=== PATIENT | female | born 1945 | race Caucasian/White ===

== ENCOUNTER → 2017-02-10 | Outpatient (CLI) | payer MEDICARE, BC | LOC: MW.CHFP 13:27 | PROVIDERS: ATTEND Family Medicine | DX: R53.83 Other fatigue (principal) | CPT/HCPCS: 36415; 80053; 84443; 85027 ==

== ENCOUNTER → 2017-02-10 | Outpatient (CLI) | payer MEDICARE, BC | LOC: MW.LAB 13:35 | PROVIDERS: ATTEND Internal Medicine | DX: N18.3 Chronic kidney disease, stage 3 (moderate) (principal); R79.9 Abnormal finding of blood chemistry, unspecified; R60.9 Edema, unspecified; N28.1 Cyst of kidney, acquired; R53.83 Other fatigue; I10 Essential (primary) hypertension; E78.5 Hyperlipidemia, unspecified | CPT/HCPCS: 36415; 80053; 81001; 82306; 82310; 82570; 83970; 84100; 84156; 84443; 84550; 85027; 99214 ==

== ENCOUNTER 2020-03-27 10:48 | Emergency (ER) | payer MEDICARE, BC ==
--- NOTE | 2020-03-27 11:09 | EDM.PDOC ---
ED HPI GENERAL MEDICAL PROBLEM - General Chief Complaint: Skin Complaint Stated Complaint: RASH FOREHEAD Time Seen by Provider: 03/27/20 10:57 Source of Information: Reports: Patient History Limitations: Reports: No Limitations - History of Present Illness INITIAL COMMENTS - FREE TEXT/NARRATIVE: 74-year-old female with history of diabetes presents with rash to the left face for 2 days. Associated with itching sensation. Denies fever, chills, chest pain, shortness of breath, ear pain, facial paralysis, neck pain, neck stiffness, headache. Her rash is localized to the left forehead. ROS: A 10-point review of systems, other than pertinent positives and negatives as stated per HPI, is otherwise negative PHYSICAL EXAM General: AOx4, GCS = 15, No distress HEENT: dry mucous membrane Skin: Dermatomal vesicular rash to the left frontalis. No vesicular lesions in the left external auditory canal, tip of the nose, left eye. Neck: supple, no meningismus, no Kernig or Brudzinski Cardiac: S1S2 RRR Respiratory: CTAB, no crackles or rales, no wheezing Abdomen: Soft, nontender, no rebound or guarding, nondistended, no pulsatile mass. Back: nontender Musculoskeletal: NVI distally, no deformity Neuro: No focal deficits, CN 2 - 12 WNL. - Related Data Allergies Allergy/AdvReac Type Severity Reaction Status Date / Time latex Allergy Cannot Verified 11/11/14 15:17 Remember Penicillins Allergy Hives Verified 11/11/14 15:17 Home Meds: Home Meds Olmesartan/Hydrochlorothiazide [Benicar HCT 40-25 MG] 1 tab PO DAILY 11/11/14 [History] Omeprazole 1 tab PO DAILY 11/11/14 [History] allopurinoL [Allopurinol] 1 tab PO DAILY 11/11/14 [History] amLODIPine Besylate [Amlodipine Besylate] 1 tab PO DAILY 11/11/14 [History] valACYclovir HCl [valACYclovir] 1,000 mg PO TID #21 tablet 03/27/20 [Rx] Past Medical History Cardiovascular History: Reports: Hypertension Genitourinary History: Reports: Other (See Below) Other Genitourinary History: kidney disease Endocrine/Metabolic History: Reports: Diabetes, Type II - Past Surgical History HEENT Surgical History: Reports: Tonsillectomy Cardiovascular Surgical History: Reports: Coronary Artery Bypass Musculoskeletal Surgical History: Reports: Other (See Below) Other Musculoskeletal Surgeries/Procedures:: knee surgery ED ROS GENERAL - Review of Systems Review Of Systems: Comprehensive ROS is negative, except as noted in HPI. ED EXAM, SKIN/RASH Exam: See Below Course - Re-Assessments/Exams Free Text/Narrative Re-Assessment/Exam: 03/27/20 11:09 After treatments and a prolonged observation period in the ER, the patient improved clinically and is stable for discharge. I performed a repeat examination and the patient has not demonstrated any new abnormal findings. Patient exhibits normal vital signs and has exhibited a normal gait. I advised the patient to return to the ER for reevaluation if symptoms worsened, and to follow up with their PCP (Dr. Doshi) within 3 days. MEDICAL DECISION MAKING: I reviewed the patients past medical records, lab and radiographic findings. I discussed the case with the patient. My differential diagnosis included: Shingles. She has no rash around her left eye, and her ear, tip of the nose. I do not suspect herpes zoster ophthalmicus, Dallas Quiroz syndrome or any other neurologic complications. Departure - Departure Time of Disposition: 11:10 Disposition: Home, Self-Care 01 Condition: Good Clinical Impression: Shingles - Discharge Information *PRESCRIPTION DRUG MONITORING PROGRAM REVIEWED*: Not Applicable *COPY OF PRESCRIPTION DRUG MONITORING REPORT IN PATIENT JULIETA: Not Applicable Prescriptions: valACYclovir HCl [valACYclovir] 1,000 mg PO TID #21 tablet Referrals: Walt Doshi MD [Primary Care Provider] - Additional Instructions: The following information is given to patients seen in the emergency department who are being discharged to home. This information is to outline your options for follow-up care. We provide all patients seen in our emergency department with a follow-up referral. The need for follow-up, as well as the timing and circumstances, are variable depending upon the specifics of your emergency department visit. If you don't have a primary care physician on staff, we will provide you with a referral. We always advise you to contact your personal physician following an emergency department visit to inform them of the circumstance of the visit and for follow-up with them and/or the need for any referrals to a consulting specialist. The emergency department will also refer you to a specialist when appropriate. This referral assures that you have the opportunity for follow-up care with a specialist. All of these measure are taken in an effort to provide you with optimal care, which includes your follow-up. Under all circumstances we always encourage you to contact your private physician who remains a resource for coordinating your care. When calling for follow-up care, please make the office aware that this follow-up is from your recent emergency room visit. If for any reason you are refused follow-up, please contact the [facility] Emergency Department at and asked to speak to the emergency department charge nurse.
[2020-03-27 11:30] VITALS: BP 114/63; PULSE 67
== END 2020-03-27 11:25 | disposition home or self-care (01) ==
LOC: MW.ED 10:48
DX: B02.9 Zoster without complications (principal); E11.9 Type 2 diabetes mellitus without complications; I10 Essential (primary) hypertension; Z91.040 Latex allergy status; Z88.0 Allergy status to penicillin; Z79.899 Other long term (current) drug therapy
CPT/HCPCS: 99282

== ENCOUNTER 2020-03-30 12:03 | Inpatient (IN) | payer MEDICARE, BC ==
[2020-03-30 14:46] LABS: BLOOD UREA NITROGEN,BUN 50 mg/dL (7.0-18.0); CHLORIDE,CL 98 mmol/L (98-107); GLUCOSE RANDOM 137 mg/dL (74-106); POTASSIUM,K 4.7 mmol/L (3.5-5.1); SODIUM,NA 134 mmol/L (136-145)
--- NOTE | 2020-03-30 14:49 | PCM.HP.2 ---
H&P History of Present Illness - General Date of Service: 03/30/20 - History of Present Illness Initial Comments - Free Text/Narative: 74 yo female with pmh of HTN, DM, CAD, s/p CABG 2016, and stage 4 CKD who was seen in the ED last week for herpes zoster infection of the left face. Patient was give acyclovir. She reported feeling week and feel down yesterday and had difficulty getting up. She stopped taking the acyclovir as she was concerned this was causing her generalized weakness. She was seen in by Dr. Henriquez clinic today who recommended admission due to her progressive weakness and zoster infection of the face - Related Data Allergies/Adverse Reactions: Allergies Allergy/AdvReac Type Severity Reaction Status Date / Time latex Allergy Redness Verified 03/30/20 15:20 Home Medications: Home Meds allopurinoL [Allopurinol] 300 mg PO DAILY 11/11/14 [History] Insulin Degludec [Tresiba] 52 unit SQ QPM 03/27/20 [History] Metoprolol Tartrate [Lopressor] 25 mg PO BID 03/27/20 [History] Olmesartan [Benicar] 40 mg PO DAILY 03/27/20 [History] RX: Folic Acid 1 mg PO DAILY 03/27/20 [History] RX: Furosemide 40 mg PO DAILY 03/27/20 [History] RX: Sodium Bicarbonate 325 mg PO BID 03/27/20 [History] RX: hydroCHLOROthiazide [Hydrochlorothiazide] 25 mg PO DAILY 03/27/20 [History] atorvaSTATin [Lipitor] 40 mg PO BEDTIME 03/27/20 [History] valACYclovir HCl [valACYclovir] 1,000 mg PO TID #21 tablet 03/27/20 [Rx] Past Medical History Cardiovascular History: Reports: High Cholesterol, Hypertension Genitourinary History: Reports: Other (See Below) Other Genitourinary History: kidney disease Endocrine/Metabolic History: Reports: Diabetes, Type II - Past Surgical History HEENT Surgical History: Reports: Tonsillectomy Cardiovascular Surgical History: Reports: Coronary Artery Bypass GI Surgical History: Reports: Bariatric Procedure Musculoskeletal Surgical History: Reports: Other (See Below) Other Musculoskeletal Surgeries/Procedures:: knee surgery-right H&P Review of Systems - Review of Systems: Review Of Systems: Comprehensive ROS is negative, except as noted in HPI. Exam - Exam Exam: See Below - Exam General: Alert, Oriented HEENT: Mucosa Moist & [place], Other (zoster rast over left upper forehead. Swelling of left eyelid. Full range of motion of eye. no orbital involvement noted) Neck: Supple Lungs: Clear to Auscultation, Normal Respiratory Effort Cardiovascular: Regular Rate, Regular Rhythm GI/Abdominal Exam: Normal Bowel Sounds, Soft, Non-Tender Extremities: Non-Tender, No Pedal Edema Neurological: Cranial Nerves Intact, Reflexes Equal Bilateral, Strength Equal Bilateral, Normal Tone, Sensation Intact, Other (able to due straight leg raises). No: Focal Deficit - Patient Data Lab Results Last 24 hrs: Laboratory Results - last 24 hr 03/30/20 03/30/20 Range/Units 13:55 13:55 WBC 10.99 (4.0-11.0) K/uL RBC 3.89 L (4.30-5.90) M/uL Hgb 11.5 L (12.0-16.0) g/dL Hct 37.0 (36.0-46.0) % MCV 95.1 (80.0-98.0) fL MCH 29.6 (27.0-32.0) pg MCHC 31.1 (31.0-37.0) g/dL RDW Std Deviation 55.8 (28.0-62.0) fl RDW Coeff of Linette 16 H (11.0-15.0) % Plt Count 222 (150-400) K/uL MPV 10.80 (7.40-12.00) fL Neut % (Auto) 65.6 (48.0-80.0) % Lymph % (Auto) 22.0 (16.0-40.0) % [place] % (Auto) 11.4 (0.0-15.0) % Eos % (Auto) 0.5 (0.0-7.0) % Baso % (Auto) 0.5 (0.0-1.5) % Neut # (Auto) 7.2 H (1.4-5.7) K/uL Lymph # (Auto) 2.4 (0.6-2.4) K/uL [place] # (Auto) 1.3 H (0.0-0.8) K/uL Eos # (Auto) 0.1 (0.0-0.7) K/uL Baso # (Auto) 0.1 (0.0-0.1) K/uL Nucleated RBC % 0.0 /100WBC Nucleated RBCs # 0 K/uL Sodium 134 L (136-145) mmol/L Potassium 4.7 (3.5-5.1) mmol/L Chloride 98 (98-107) mmol/L Carbon Dioxide 25.0 (21.0-32.0) mmol/L BUN 50 H (7.0-18.0) mg/dL Creatinine 2.9 H (0.6-1.0) mg/dL Est Cr Clr Drug Dosing TNP Estimated GFR (MDRD) 15.8 ml/min Glucose 137 H (74-106) mg/dL Calcium 9.7 (8.5-10.1) mg/dL Total Bilirubin 0.2 (0.2-1.0) mg/dL AST 46 H (15-37) IU/L ALT 24 (14-63) IU/L Alkaline Phosphatase 106 (46-116) U/L Creatine Kinase 2446 H (26-308) U/L Total Protein 7.2 (6.4-8.2) g/dL Albumin 3.5 (3.4-5.0) g/dL Globulin 3.7 (2.6-4.0) g/dL Albumin/Globulin Ratio 0.9 (0.9-1.6) Result Diagrams: 04/01/20 07:22 04/01/20 07:22 Sepsis Event Note - Focused Exam Date Exam was Performed: 04/01/20 Time Exam was Performed: 13:22 Problem List Initiated/Reviewed/Updated: Yes Orders Last 24hrs: Active Orders 24 hr Category Date Time Status Head wo Cont [CT] Stat Exams 03/30/20 13:56 Taken CELL COUNT,CSF [BF] Routine Lab 03/30/20 14:05 Ordered COMPREHENSIVE METABOLIC PN,CMP [CHEM] Routine Lab 03/30/20 13:55 Received CORONAVIRUS COVID-19 PCR PHL Routine Lab 03/30/20 13:28 Ordered CPK [CREATINE KINASE,CK] [CHEM] Routine Lab 03/30/20 13:55 Received CSF LACTIC Routine Lab 03/30/20 14:05 Ordered CSF PROTEIN Routine Lab 03/30/20 14:05 Ordered CULTURE CSF + SMEAR [RM] Routine Lab 03/30/20 14:05 Ordered GLUCOSE,CSF [BF] Routine Lab 03/30/20 14:05 Ordered MISC TEST Routine Lab 03/30/20 14:13 Ordered MISC TEST Routine Lab 03/30/20 14:15 Ordered PROTEIN,CSF [BF] Routine Lab 03/30/20 14:05 Ordered VDRL, CSF Routine Lab 03/30/20 14:05 Ordered VZV REAL TIME PCR [REF] Routine Lab 03/30/20 14:10 Ordered Acyclovir [Zovirax] 1,150 mg Med 03/30/20 14:45 Active Sodium Chloride 0.9% [Normal Saline] 250 ml IV ONETIME Medication Orders Acyclovir 1,150 mg/ Sodium (Chloride) 250 mls @ 250 mls/hr IV ONETIME ONE Stop: 03/30/20 15:44 Assessment/Plan Comment:: 74 yo female admitted for herpes zoster infection of the face and generalized weakness. We will work up with MRI brain and lumbar puncture but he weakness may be more related to dehydration that is also causing acute on chronic kidney disease and mild rhabdomyolysis. 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
--- NOTE | 2020-03-30 14:52 | CT ---
Head CT Technique: Multiple axial sections through the brain were obtained. Intravenous contrast was not utilized. Comparison: No previous intracranial imaging is available. Findings: Ventricles along with basal cisterns and sulci over the convexities are mildly prominent. Minimal areas of low density are noted within the periventricular white matter most likely representing small vessel ischemic demyelination change. No other abnormal parenchymal densities are seen. No evidence of intracranial hemorrhage. No midline shift or mass-effect is seen. Bone window settings were reviewed which shows no acute calvarial abnormality. Visualized paranasal sinuses show minimal mucosal thickening within the inferior maxillary sinuses. Visualized mastoid sinuses show nothing acute. Impression: 1. Minimal sinus findings most likely chronic. 2. Mild senescent change as noted above. 3. No acute intracranial abnormality is appreciated. Diagnostic code #2 This report was dictated in MDT
[2020-03-30] MEDS ORDERED: Sodium Chloride 0.9% 1,000 ML IV ONE (14:59)
[2020-03-30] MEDS: Sodium Chloride 0.9% 1,000 ML IV SCH (16:57)
[2020-03-30] MEDS: Insulin Aspart 100 Units/ML 3 ML Pen SUBCUT SCH (17:13)
[2020-03-30] MEDS: INSULIN DEGLUDEC 52 UNIT SUBCUT SCH (17:14)
--- NOTE | 2020-03-30 18:32 | MR ---
MRI brain Technique: T1 sagittal and coronal; T1, T2, FLAIR and diffusion axial Comparison: Prior head CT study performed earlier on the same day (2:40 PM). Findings: Ventricles along with basal cisterns and sulci over the convexities are mildly prominent. Mild areas of increased signal s are een within the periventricular and subcortical white matter which most likely represent small vessel ischemic demyelination change. No other abnormal signal is seen within the brain parenchyma. No acute diffusion abnormalities are seen. No midline shift or mass-effect is seen. Normal signal void is seen within the major cerebral arteries within the skull base. Impression: 1. Mild senescent change as noted above. 2. Nothing acute is seen on MRI study of the brain. Diagnostic code #2 This report was dictated in MDT
--- NOTE | 2020-03-30 20:58 | MR ---
MRI cervical spine Technique: T2 and FFE axial images were obtained from above the C2-3 disc inferiorly through the T1-2 disc. T1, T2 and fat suppressed inversion recovery sagittal images were obtained. Findings: Motion artifact is seen particularly on the axial views. Findings: C2-3: Posterior disc is preserved. No central canal stenosis is seen. Neural foramina are felt to be patent. C3-4: Posterior disc is felt to be fairly well preserved. No central canal stenosis or neural foraminal stenosis is seen. C4-5: Mild diffuse posterior disc bulge is seen. No central canal stenosis or neural foraminal stenosis is seen. C5-6: Moderate disc space narrowing is seen. Diffuse posterior disc bulge and anterior bulge is seen as well as anterior osteophytes. No central canal stenosis is seen. Right neural foramina is minimally narrow. Left neuroforamina appears to be moderately narrowed. C6-7: Mild diffuse posterior disc bulge is seen as well as anterior bulge and anterior osteophytes. No central canal stenosis or neural foraminal stenosis is seen. C7-T1: Posterior disc is maintained. No central canal stenosis or neural foraminal stenosis is seen. T1-2: Posterior disc is preserved. No central canal stenosis or neural foraminal stenosis is seen. T2-3 and T3-4: Posterior disc are maintained. No central canal stenosis or neural foraminal stenosis is seen. Cervical cord shows no abnormal signal or mass. Impression: 1. Motion artifact as described above. 2. Disc bulging as noted above. Several levels of neural foraminal stenosis is seen. Diagnostic code #2 This report was dictated in MDT
--- NOTE | 2020-03-30 22:11 | PCM.SN.2 ---
- Free Text/Narrative Note: Called to medical surgical unit to perform lumbar puncture on patient suffering from HZV to the face. She has completed a CT and MRI of the head previously today. History and labs reviewed. Consent obtained. Provider wearing sterile gown, hat, mask and sterile gloves. Patient positioned on edge of bed. Sterile prep with betadine. Sterile drape applied. Skin anesthetized with 1% lidocaine. 22g spinal needle passes easily. Clear CSF obtained. 1cc into each of the four tubes. Site cleansed and bandage applied. Patient tolerated procedure well. Report to RN and extension service specialist in charge. Specimens to lab.
[2020-03-30] MEDS: Metoprolol Tartrate 25 MG Tab PO SCH (22:18)
[2020-03-30] MEDS: atorvaSTATin 40 MG Tab PO SCH (22:18)
[2020-03-31] MEDS ORDERED: cefTRIAXone 2 GM in Sodium Chloride 0.9% 50 ML IV SCH ×2
[2020-03-31] MEDS ORDERED: Vancomycin 1.75 GM in Sodium Chloride 0.9% 500 ML IV ONE ×3 (01:00)
[2020-03-31] MEDS ORDERED: cefTRIAXone 2 GM in Premix Bag 1 BAG IV SCH (01:00)
[2020-03-31] MEDS: cefTRIAXone 2 GM in Premix Bag 1 BAG IV SCH (04:09)
[2020-03-31 07:22] LABS: CARBON DIOXIDE,CO2 20.9 mmol/L (21.0-32.0)
[2020-03-31] MEDS: Insulin Aspart 100 Units/ML 3 ML Pen SUBCUT SCH ×3 (08:11→16:57)
--- NOTE | 2020-03-31 08:13 | PCM48HPAN ---
Post Anesthesia Note - EVALUATION WITHIN 48HRS OF ANESTHETIC Vital Signs in Normal Range: Yes Patient Participated in Evaluation: Yes Respiratory Function Stable: Yes Airway Patent: Yes Cardiovascular Function Stable: Yes Hydration Status Stable: Yes Pain Control Satisfactory: Yes Nausea and Vomiting Control Satisfactory: Yes Mental Status Recovered: Yes Vital Signs: Last Vital Signs Temp 37.1 C 03/31/20 04:14 Pulse 70 03/31/20 04:14 Resp 17 03/31/20 04:14 BP 153/61 H 03/31/20 04:14 Pulse Ox 97 03/31/20 04:14 - COMMENTS/OBSERVATIONS Free Text/Narrative:: No complaints after LP
--- NOTE | 2020-03-31 08:13 | MR ---
MRI thoracic spine Technique: Multiple T2-weighted axial images were obtained through the thoracic spine. T1, T2 and fat suppressed inversion recovery sagittal images were obtained. Comparison: No prior thoracic spine imaging is available. Findings: Diffuse posterior lateral disc bulge is noted on both sides at T8-9 which indent the anterior thecal sac. No central canal stenosis is seen. Neural foramina are felt to be patent where the nerve roots exit. Other less prominent disc bulging is scattered throughout the thoracic spine. No central canal stenosis or neural foraminal stenosis seen. Disc space narrowing is noted at T8-9 with degenerative endplate signal change. Thoracic cord shows no abnormal signal. Impression: 1. Scattered degenerative change most severe at T8-9 with disc space narrowing, endplate degenerative signal change and bilateral posterolateral disc bulging. 2. No abnormal signal within the thoracic cord is seen. Diagnostic code #3 This report was dictated in MDT
--- NOTE | 2020-03-31 08:13 | MR ---
MRI lumbar spine Technique: T1 and T2-weighted axial images were obtained from above the T12-L1 disc through the L5-S1 disc. T1, T2 and fat suppressed inversion recovery sagittal images were obtained through the 8th lumbar spine. Comparison: No prior lumbar spine imaging is available. Findings: T11-12: Posterior disc is preserved. No central canal stenosis or neural foraminal stenosis is seen. T12-L1: Posterior disc is preserved. No central canal stenosis or neural foraminal stenosis is seen. L1-2: Posterior disc is preserved. No central canal stenosis or neural foraminal stenosis is seen. L2-3: Mild disc space narrowing is seen. Very slight circumferential disc bulge is present. Minimal degenerative apophyseal change is seen. Posterior disc maintains a mildly concave margin. Disc bulging is seen into both inferior neural foramina but nerve roots appear to exit without compromise. Left renal cyst is noted at this level measuring approximately 4.1 cm. L3-4: Circumferential disc bulge is noted with severe degenerative apophyseal change. Thickening of the ligamentum flavum is seen which indents the thecal sac. Circumferential disc bulge shows minimal concave margin. Findings cause moderate central canal stenosis. Disc bulging is is seen into both inferior neural foramina. Nerve roots appear to exit without definite compromise. L4-5: Very slight circumferential disc bulge is seen. Severe degenerative apophyseal change is noted with thickening of the ligamentum flavum. Findings cause mild to moderate central canal stenosis. Disc bulging noted into both inferior neural foramina. Nerve roots appear to exit without definite compromise. L5-S1: Physiologic disc bulge is noted posteriorly. Moderate degenerative apophyseal change is noted. No central canal stenosis or neural foraminal stenosis is seen. Diffuse degenerative dehydration change is seen throughout the lower thoracic lumbar disc. Conus medullaris and cauda equina shows no abnormal signal or mass. Small Tarlov cyst is noted posterior to S2 which is believed to be incidental. Impression: 1. Diffuse degenerative change as noted above. Most severe findings are at L3-4 and L4-5 with degenerative apophyseal change in central canal stenosis. Diagnostic code #3 This report was dictated in MDT
[2020-03-31] MEDS: Hydrochlorothiazide 25 MG Tab PO SCH (08:43)
[2020-03-31] MEDS: Metoprolol Tartrate 25 MG Tab PO SCH ×2 (08:43→20:16)
--- NOTE | 2020-03-31 10:56 | PCM.PN ---
- General Info Date of Service: 03/31/20 - Review of Systems Systems Review Comment:: feeling better, rash has improved, feeling stronger, able to walk with walker - Patient Data Vitals - Most Recent: Last Vital Signs Temp 36.8 C 03/31/20 08:00 Pulse 86 03/31/20 08:43 Resp 18 03/31/20 08:00 BP 131/83 03/31/20 08:43 Pulse Ox 96 03/31/20 08:00 Weight - Most Recent: 114.124 kg I&O - Last 24 Hours: Intake & Output 03/30/20 03/31/20 03/31/20 22:59 06:59 14:59 Intake Total 1100 1600 Output Total 500 450 Balance 600 1150 Lab Results Last 24 Hours: Laboratory Results - last 24 hr 03/30/20 03/30/20 03/30/20 Range/Units 13:55 13:55 15:30 WBC 10.99 (4.0-11.0) K/uL RBC 3.89 L (4.30-5.90) M/uL Hgb 11.5 L (12.0-16.0) g/dL Hct 37.0 (36.0-46.0) % MCV 95.1 (80.0-98.0) fL MCH 29.6 (27.0-32.0) pg MCHC 31.1 (31.0-37.0) g/dL RDW Std Deviation 55.8 (28.0-62.0) fl RDW Coeff of Linette 16 H (11.0-15.0) % Plt Count 222 (150-400) K/uL MPV 10.80 (7.40-12.00) fL Neut % (Auto) 65.6 (48.0-80.0) % Lymph % (Auto) 22.0 (16.0-40.0) % [place] % (Auto) 11.4 (0.0-15.0) % Eos % (Auto) 0.5 (0.0-7.0) % Baso % (Auto) 0.5 (0.0-1.5) % Neut # (Auto) 7.2 H (1.4-5.7) K/uL Lymph # (Auto) 2.4 (0.6-2.4) K/uL [place] # (Auto) 1.3 H (0.0-0.8) K/uL Eos # (Auto) 0.1 (0.0-0.7) K/uL Baso # (Auto) 0.1 (0.0-0.1) K/uL Nucleated RBC % 0.0 /100WBC Nucleated RBCs # 0 K/uL Sodium 134 L (136-145) mmol/L Potassium 4.7 (3.5-5.1) mmol/L Chloride 98 (98-107) mmol/L Carbon Dioxide 25.0 (21.0-32.0) mmol/L BUN 50 H (7.0-18.0) mg/dL Creatinine 2.9 H (0.6-1.0) mg/dL Est Cr Clr Drug Dosing TNP Estimated GFR (MDRD) 15.8 ml/min Glucose 137 H (74-106) mg/dL POC Glucose (60-110) mg/dL Calcium 9.7 (8.5-10.1) mg/dL Total Bilirubin 0.2 (0.2-1.0) mg/dL AST 46 H (15-37) IU/L ALT 24 (14-63) IU/L Alkaline Phosphatase 106 (46-116) U/L Creatine Kinase 2446 H (26-308) U/L Total Protein 7.2 (6.4-8.2) g/dL Albumin 3.5 (3.4-5.0) g/dL Globulin 3.7 (2.6-4.0) g/dL Albumin/Globulin Ratio 0.9 (0.9-1.6) CSF Appearance CSF Color CSF WBC (0-5) /uL CSF RBC (0-0) /uL CSF Mononuclear Cells % CSF Polymorphonuclear % CSF Glucose (40-70) mg/dL CSF Total Protein (15-45) mg/dL COVID-19 (JENNIFER) NEGATIVE (NEGATIVE) 03/30/20 03/30/20 03/30/20 Range/Units 17:12 22:00 22:00 WBC (4.0-11.0) K/uL RBC (4.30-5.90) M/uL Hgb (12.0-16.0) g/dL Hct (36.0-46.0) % MCV (80.0-98.0) fL MCH (27.0-32.0) pg MCHC (31.0-37.0) g/dL RDW Std Deviation (28.0-62.0) fl RDW Coeff of Linette (11.0-15.0) % Plt Count (150-400) K/uL MPV (7.40-12.00) fL Neut % (Auto) (48.0-80.0) % Lymph % (Auto) (16.0-40.0) % [place] % (Auto) (0.0-15.0) % Eos % (Auto) (0.0-7.0) % Baso % (Auto) (0.0-1.5) % Neut # (Auto) (1.4-5.7) K/uL Lymph # (Auto) (0.6-2.4) K/uL [place] # (Auto) (0.0-0.8) K/uL Eos # (Auto) (0.0-0.7) K/uL Baso # (Auto) (0.0-0.1) K/uL Nucleated RBC % /100WBC Nucleated RBCs # K/uL Sodium (136-145) mmol/L Potassium (3.5-5.1) mmol/L Chloride (98-107) mmol/L Carbon Dioxide (21.0-32.0) mmol/L BUN (7.0-18.0) mg/dL Creatinine (0.6-1.0) mg/dL Est Cr Clr Drug Dosing Estimated GFR (MDRD) ml/min Glucose (74-106) mg/dL POC Glucose 111 H (60-110) mg/dL Calcium (8.5-10.1) mg/dL Total Bilirubin (0.2-1.0) mg/dL AST (15-37) IU/L ALT (14-63) IU/L Alkaline Phosphatase (46-116) U/L Creatine Kinase (26-308) U/L Total Protein (6.4-8.2) g/dL Albumin (3.4-5.0) g/dL Globulin (2.6-4.0) g/dL Albumin/Globulin Ratio (0.9-1.6) CSF Appearance CLEAR CSF Color COLORLESS CSF WBC 240 H (0-5) /uL CSF RBC 0 (0-0) /uL CSF Mononuclear Cells 96.7 % CSF Polymorphonuclear 3.3 % CSF Glucose 72.0 H (40-70) mg/dL CSF Total Protein 66 H (15-45) mg/dL COVID-19 (JENNIFER) (NEGATIVE) 03/31/20 03/31/20 03/31/20 Range/Units 06:10 06:15 06:15 WBC 8.82 (4.0-11.0) K/uL RBC 3.75 L (4.30-5.90) M/uL Hgb 11.3 L (12.0-16.0) g/dL Hct 35.6 L (36.0-46.0) % MCV 94.9 (80.0-98.0) fL MCH 30.1 (27.0-32.0) pg MCHC 31.7 (31.0-37.0) g/dL RDW Std Deviation 55.2 (28.0-62.0) fl RDW Coeff of Linette 16 H (11.0-15.0) % Plt Count 200 (150-400) K/uL MPV 11.50 (7.40-12.00) fL Neut % (Auto) 65.4 (48.0-80.0) % Lymph % (Auto) 21.3 (16.0-40.0) % [place] % (Auto) 9.2 (0.0-15.0) % Eos % (Auto) 3.5 (0.0-7.0) % Baso % (Auto) 0.6 (0.0-1.5) % Neut # (Auto) 5.8 H (1.4-5.7) K/uL Lymph # (Auto) 1.9 (0.6-2.4) K/uL [place] # (Auto) 0.8 (0.0-0.8) K/uL Eos # (Auto) 0.3 (0.0-0.7) K/uL Baso # (Auto) 0.1 (0.0-0.1) K/uL Nucleated RBC % 0.0 /100WBC Nucleated RBCs # 0 K/uL Sodium 137 (136-145) mmol/L Potassium 5.0 (3.5-5.1) mmol/L Chloride 103 (98-107) mmol/L Carbon Dioxide 20.9 L (21.0-32.0) mmol/L BUN 45 H (7.0-18.0) mg/dL Creatinine 2.4 H (0.6-1.0) mg/dL Est Cr Clr Drug Dosing 15.05 Estimated GFR (MDRD) 19.6 ml/min Glucose 132 H (74-106) mg/dL POC Glucose 140 H (60-110) mg/dL Calcium 8.8 (8.5-10.1) mg/dL Total Bilirubin (0.2-1.0) mg/dL AST (15-37) IU/L ALT (14-63) IU/L Alkaline Phosphatase (46-116) U/L Creatine Kinase 3065 H (26-308) U/L Total Protein (6.4-8.2) g/dL Albumin (3.4-5.0) g/dL Globulin (2.6-4.0) g/dL Albumin/Globulin Ratio (0.9-1.6) CSF Appearance CSF Color CSF WBC (0-5) /uL CSF RBC (0-0) /uL CSF Mononuclear Cells % CSF Polymorphonuclear % CSF Glucose (40-70) mg/dL CSF Total Protein (15-45) mg/dL COVID-19 (JENNIFER) (NEGATIVE) Izaiah Results Last 24 Hours: Microbiology 03/30/20 22:00 Gram Stain - Final Cerebral Spinal Fluid Med Orders - Current: Current Medications Atorvastatin Calcium (Lipitor) 40 mg PO BEDTIME [facility] Last Admin: 03/30/20 22:18 Dose: 40 mg Documented by: Hydrochlorothiazide (Hydrochlorothiazide) 25 mg PO DAILY [facility] Last Admin: 03/31/20 08:43 Dose: 25 mg Documented by: Sodium Chloride (Normal Saline) 1,000 mls @ 125 mls/hr IV ASDIRECTED [facility] Last Admin: 03/30/20 16:57 Dose: 125 mls/hr Documented by: Ceftriaxone Sodium/Dextrose 2 (gm/ Premix) 50 mls @ 100 mls/hr IV Q24H [facility] Last Admin: 03/31/20 04:09 Dose: 100 mls/hr Documented by: Insulin Aspart (Novolog) 0 unit SUBCUT TIDAC [facility]; Protocol Last Admin: 03/31/20 08:11 Dose: Not Given Documented by: Metoprolol Tartrate (Lopressor) 25 mg PO BID [facility] Last Admin: 03/31/20 08:43 Dose: 25 mg Documented by: Insulin Degludec [ (Tresiba] 52 Unit) 0 each SUBCUT QPM [facility] Last Admin: 03/30/20 17:14 Dose: Not Given Documented by: Vancomycin HCl (Pharmacy To Dose - Vancomycin) 1 dose .XX ASDIRECTED [facility] Discontinued Medications Acyclovir 1,150 mg/ Sodium (Chloride) 250 mls @ 250 mls/hr IV ONETIME ONE Stop: 03/30/20 15:44 Last Admin: 03/30/20 19:21 Dose: Not Given Documented by: Acyclovir 1,150 mg/ Sodium (Chloride) 273 mls @ 273 mls/hr IV Q24H [facility] Sodium Chloride (Normal Saline) 1,000 mls @ 999 mls/hr IV .Bolus ONE Stop: 03/30/20 15:59 Last Admin: 03/30/20 15:21 Dose: 999 mls/hr Documented by: Acyclovir 1,150 mg/ Sodium (Chloride) 250 mls @ 250 mls/hr IV ONETIME ONE Stop: 03/30/20 17:29 Last Admin: 03/30/20 17:05 Dose: 250 mls/hr Documented by: Ceftriaxone Sodium/Dextrose 2 (gm/ Premix) 50 mls @ 100 mls/hr IV Q24H [facility] Last Admin: 03/31/20 04:35 Dose: Not Given Documented by: Vancomycin HCl 1.75 gm/ Sodium (Chloride) 500 mls @ 250 mls/hr IV ONETIME ONE Stop: 03/31/20 02:59 Last Admin: 03/31/20 01:57 Dose: 250 mls/hr Documented by: Vancomycin HCl 1.75 gm/ Sodium (Chloride) 500 mls @ 250 mls/hr IV Q24H [facility] - Exam General: Alert, Oriented HEENT: Other (zoster rash over left forehead and eyelid, no conjuctivitis) Lungs: Clear to Auscultation, Normal Respiratory Effort Cardiovascular: Regular Rate, Regular Rhythm GI/Abdominal Exam: Normal Bowel Sounds, Soft, Non-Tender Extremities: Non-Tender, No Pedal Edema Skin: Warm, Dry, Intact Neurological: No New Focal Deficit, Strength Equal Bilateral Sepsis Event Note - Evaluation Sepsis Screening Result: No Definite Risk - Focused Exam Vital Signs: Vital Signs Temp Pulse Pulse Resp BP BP Pulse Ox 03/31/20 08:43 86 131/83 03/31/20 08:00 36.8 C 86 18 131/83 96 03/31/20 04:14 37.1 C 70 17 153/61 H 97 Date Exam was Performed: 03/31/20 Time Exam was Performed: 10:54 - Problem List Review Problem List Initiated/Reviewed/Updated: Yes - My Orders Last 24 Hours: My Active Orders 03/30/20 15:00 Sodium Chloride 0.9% [Normal Saline] 1,000 ml IV ASDIRECTED 03/30/20 15:18 Patient Status [ADT] Routine Blood Glucose Check, Bedside [RC] TIDMEALS Oxygen Therapy [RC] PRN VTE/DVT Education [RC] PER UNIT ROUTINE Vital Signs [RC] Q4H PT Evaluation and Treatment [CONS] Routine Resuscitation Status Routine 03/30/20 15:20 Antiembolic Devices [RC] PER UNIT ROUTINE Sequential Compression Device [OM.PC] Per Unit Routine 03/30/20 17:00 Insulin Aspart [NovoLOG] See Protocol SUBCUT TIDAC 03/30/20 18:00 Patient's Own Medication [Ptom] 0 each SUBCUT QPM 03/30/20 21:00 Metoprolol Tartrate [Lopressor] 25 mg PO BID atorvaSTATin [Lipitor] 40 mg PO BEDTIME 03/30/20 22:00 CSF LACTIC Routine CULTURE CSF + SMEAR [RM] Routine VDRL, CSF Routine VZV REAL TIME PCR [REF] Routine 03/31/20 00:10 HSV 1/2 PCR [REF] Routine 03/31/20 00:15 Pharmacy to Dose - Vancomycin 1 dose .XX ASDIRECTED 03/31/20 04:00 cefTRIAXone [Rocephin in Dextrose,Iso-Osm 2 GM/50 ML] 2 gm Premix Bag 1 bag IV Q24H 03/31/20 09:00 hydroCHLOROthiazide 25 mg PO DAILY 04/01/20 05:11 BASIC METABOLIC PANEL,BMP [CHEM] AM CBC WITH AUTO DIFF [HEME] AM CPK [CREATINE KINASE,CK] [CHEM] AM - Plan Plan:: 74 yo female admitted for herpes zoster infection of the face and generalized weakness. 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
[2020-03-31] MEDS: Sodium Chloride 0.9% 1,000 ML IV SCH ×2 (11:27→20:18)
[2020-03-31] MEDS: INSULIN DEGLUDEC 52 UNIT SUBCUT SCH (18:45)
[2020-03-31] MEDS: atorvaSTATin 40 MG Tab PO SCH (20:14)
[2020-04-01] MEDS ORDERED: Vancomycin 1.75 GM in Sodium Chloride 0.9% 500 ML IV SCH (02:00)
[2020-04-01] MEDS: cefTRIAXone 2 GM in Premix Bag 1 BAG IV SCH (03:24)
[2020-04-01] MEDS: Sodium Chloride 0.9% 1,000 ML IV SCH ×2 (06:28→17:51)
[2020-04-01] MEDS: Insulin Aspart 100 Units/ML 3 ML Pen SUBCUT SCH ×3 (07:45→17:52)
[2020-04-01 08:21] LABS: CARBON DIOXIDE,CO2 21.5 mmol/L (21.0-32.0); POTASSIUM,K 4.6 mmol/L (3.5-5.1)
[2020-04-01] MEDS: Metoprolol Tartrate 25 MG Tab PO SCH ×2 (08:57→22:07)
[2020-04-01] MEDS: Hydrochlorothiazide 25 MG Tab PO SCH (08:57)
--- NOTE | 2020-04-01 13:21 | PCM.PN ---
- General Info Date of Service: 04/01/20 - Review of Systems Systems Review Comment:: feeling better, rash stable - Patient Data Vitals - Most Recent: Last Vital Signs Temp 36.8 C 04/01/20 08:00 Pulse 84 04/01/20 08:57 Resp 18 04/01/20 08:00 BP 132/84 04/01/20 08:57 Pulse Ox 98 04/01/20 08:00 Weight - Most Recent: 114.124 kg I&O - Last 24 Hours: Intake & Output 03/31/20 04/01/20 04/01/20 22:59 06:59 14:59 Intake Total 1965 400 Output Total 950 500 Balance 1015 -100 Lab Results Last 24 Hours: Laboratory Results - last 24 hr 03/30/20 03/31/20 04/01/20 Range/Units 22:00 16:53 06:25 WBC (4.0-11.0) K/uL RBC (4.30-5.90) M/uL Hgb (12.0-16.0) g/dL Hct (36.0-46.0) % MCV (80.0-98.0) fL MCH (27.0-32.0) pg MCHC (31.0-37.0) g/dL RDW Std Deviation (28.0-62.0) fl RDW Coeff of Linette (11.0-15.0) % Plt Count (150-400) K/uL MPV (7.40-12.00) fL Add Manual Diff Neutrophils % (Manual) (48.0-80.0) % Band Neutrophils % % Lymphocytes % (Manual) (16.0-40.0) % Monocytes % (Manual) (0.0-15.0) % Eosinophils % (Manual) (0.0-7.0) % Nucleated RBC % /100WBC Absolute Seg Neuts (1.4-5.7) Band Neutrophils # Lymphocytes # (Manual) (0.6-2.4) Monocytes # (Manual) (0.0-0.8) Eosinophils # (Manual) (0.0-0.7) Nucleated RBCs # K/uL Sodium (136-145) mmol/L Potassium (3.5-5.1) mmol/L Chloride (98-107) mmol/L Carbon Dioxide (21.0-32.0) mmol/L BUN (7.0-18.0) mg/dL Creatinine (0.6-1.0) mg/dL Est Cr Clr Drug Dosing mL/min Estimated GFR (MDRD) ml/min Glucose (74-106) mg/dL POC Glucose 141 H 145 H (60-110) mg/dL Calcium (8.5-10.1) mg/dL Creatine Kinase (26-308) U/L CSF Lactic Acid 2.9 H (0.0-2.8) mmol/L 04/01/20 04/01/20 04/01/20 Range/Units 07:22 07:22 12:09 WBC 9.98 (4.0-11.0) K/uL RBC 3.47 L (4.30-5.90) M/uL Hgb 10.4 L (12.0-16.0) g/dL Hct 33.1 L (36.0-46.0) % MCV 95.4 (80.0-98.0) fL MCH 30.0 (27.0-32.0) pg MCHC 31.4 (31.0-37.0) g/dL RDW Std Deviation 55.5 (28.0-62.0) fl RDW Coeff of Linette 16 H (11.0-15.0) % Plt Count 219 (150-400) K/uL MPV 10.90 (7.40-12.00) fL Add Manual Diff YES Neutrophils % (Manual) 50 (48.0-80.0) % Band Neutrophils % 9 % Lymphocytes % (Manual) 26 (16.0-40.0) % Monocytes % (Manual) 5 (0.0-15.0) % Eosinophils % (Manual) 10 H (0.0-7.0) % Nucleated RBC % 0.0 /100WBC Absolute Seg Neuts 5.0 (1.4-5.7) Band Neutrophils # 0.9 Lymphocytes # (Manual) 2.6 H (0.6-2.4) Monocytes # (Manual) 0.5 (0.0-0.8) Eosinophils # (Manual) 1.0 H (0.0-0.7) Nucleated RBCs # 0 K/uL Sodium 136 (136-145) mmol/L Potassium 4.6 (3.5-5.1) mmol/L Chloride 103 (98-107) mmol/L Carbon Dioxide 21.5 (21.0-32.0) mmol/L BUN 37 H (7.0-18.0) mg/dL Creatinine 1.9 H (0.6-1.0) mg/dL Est Cr Clr Drug Dosing 19.01 mL/min Estimated GFR (MDRD) 25.7 ml/min Glucose 145 H (74-106) mg/dL POC Glucose 162 H (60-110) mg/dL Calcium 8.8 (8.5-10.1) mg/dL Creatine Kinase 1618 H (26-308) U/L CSF Lactic Acid (0.0-2.8) mmol/L Ziaiah Results Last 24 Hours: Microbiology 03/30/20 22:00 Gram Stain - Final Cerebral Spinal Fluid Med Orders - Current: Current Medications Atorvastatin Calcium (Lipitor) 40 mg PO BEDTIME [facility] Last Admin: 03/31/20 20:14 Dose: 40 mg Documented by: Hydrochlorothiazide (Hydrochlorothiazide) 25 mg PO DAILY [facility] Last Admin: 04/01/20 08:57 Dose: 25 mg Documented by: Sodium Chloride (Normal Saline) 1,000 mls @ 125 mls/hr IV ASDIRECTED [facility] Last Admin: 04/01/20 06:28 Dose: 125 mls/hr Documented by: Insulin Aspart (Novolog) 0 unit SUBCUT TIDAC [facility]; Protocol Last Admin: 04/01/20 07:45 Dose: Not Given Documented by: Metoprolol Tartrate (Lopressor) 25 mg PO BID [facility] Last Admin: 04/01/20 08:57 Dose: 25 mg Documented by: Insulin Degludec [ (Tresiba] 52 Unit) 0 each SUBCUT QPM [facility] Last Admin: 03/31/20 18:45 Dose: Not Given Documented by: Valacyclovir HCl (Valtrex) 1,000 mg PO ONETIME ONE Stop: 04/01/20 15:01 Discontinued Medications Acyclovir 1,150 mg/ Sodium (Chloride) 250 mls @ 250 mls/hr IV ONETIME ONE Stop: 03/30/20 15:44 Last Admin: 03/30/20 19:21 Dose: Not Given Documented by: Acyclovir 1,150 mg/ Sodium (Chloride) 273 mls @ 273 mls/hr IV Q24H [facility] Sodium Chloride (Normal Saline) 1,000 mls @ 999 mls/hr IV .Bolus ONE Stop: 03/30/20 15:59 Last Admin: 03/30/20 15:21 Dose: 999 mls/hr Documented by: Acyclovir 1,150 mg/ Sodium (Chloride) 250 mls @ 250 mls/hr IV ONETIME ONE Stop: 03/30/20 17:29 Last Admin: 03/30/20 17:05 Dose: 250 mls/hr Documented by: Ceftriaxone Sodium/Dextrose 2 (gm/ Premix) 50 mls @ 100 mls/hr IV Q24H [facility] Last Admin: 03/31/20 04:35 Dose: Not Given Documented by: Vancomycin HCl 1.75 gm/ Sodium (Chloride) 500 mls @ 250 mls/hr IV ONETIME ONE Stop: 03/31/20 02:59 Last Admin: 03/31/20 01:57 Dose: 250 mls/hr Documented by: Ceftriaxone Sodium/Dextrose 2 (gm/ Premix) 50 mls @ 100 mls/hr IV Q24H [facility] Last Admin: 04/01/20 03:24 Dose: 100 mls/hr Documented by: Vancomycin HCl 1.75 gm/ Sodium (Chloride) 500 mls @ 250 mls/hr IV Q24H [facility] Vancomycin HCl (Pharmacy To Dose - Vancomycin) 1 dose .XX ASDIRECTED [facility] - Exam General: Alert, Oriented HEENT: Other (herpetic rash of left forhead, no conjuctivitis ) Neck: Supple Lungs: Clear to Auscultation, Normal Respiratory Effort Cardiovascular: Regular Rate, Regular Rhythm GI/Abdominal Exam: Normal Bowel Sounds, Soft, Non-Tender, No Distention Extremities: Non-Tender, No Pedal Edema Neurological: No New Focal Deficit Sepsis Event Note - Evaluation Sepsis Screening Result: No Definite Risk - Focused Exam Vital Signs: Vital Signs Temp Pulse Pulse Resp BP BP Pulse Ox 04/01/20 08:57 84 132/84 04/01/20 08:00 36.8 C 82 18 132/68 98 04/01/20 03:20 36.9 C 75 18 128/60 96 Date Exam was Performed: 04/01/20 Time Exam was Performed: 13:12 - Problem List Review Problem List Initiated/Reviewed/Updated: Yes - My Orders Last 24 Hours: My Active Orders 04/01/20 15:00 valACYclovir [Valtrex] 1,000 mg PO ONETIME ONE - Plan Plan:: 74 yo female admitted for herpes zoster infection of the face and generalized weakness. varicella-zoster virus: Spoke with ID in [facility] and believe LP results are not significant, maybe outside window of treatment of Zoster. Will give one last does of valtrex today and benefit of further dosing may not outweigh the renal risks Acute on chronic kidney disease with rhabdomyolysis: continue IV fluids, holding lasix and Benicar, will monitor for one more day and likely discharge home tomorrow. generalized weakness: PT consulted, able to ambulate with walker
[2020-04-01] MEDS ORDERED: valACYclovir 500 MG Tab PO ONE (15:00)
[2020-04-01] MEDS: INSULIN DEGLUDEC 52 UNIT SUBCUT SCH (19:48)
[2020-04-01] MEDS: atorvaSTATin 40 MG Tab PO SCH (22:07)
[2020-04-02] MEDS: Sodium Chloride 0.9% 1,000 ML IV SCH (02:07)
[2020-04-02] MEDS: Insulin Aspart 100 Units/ML 3 ML Pen SUBCUT SCH ×2 (07:14→13:29)
[2020-04-02] MEDS: Hydrochlorothiazide 25 MG Tab PO SCH (08:02)
[2020-04-02] MEDS: Metoprolol Tartrate 25 MG Tab PO SCH (08:02)
[2020-04-02 08:03] VITALS: BP 150/75; PULSE 84
[2020-04-02 10:08] LABS: CARBON DIOXIDE,CO2 22.8 mmol/L (21.0-32.0); POTASSIUM,K 4.8 mmol/L (3.5-5.1)
--- NOTE | 2020-04-02 11:44 | PCM.DCSUM1 ---
Discharge Summary - Discharge Data Discharge Date: 04/02/20 Discharge Disposition: Home, Self-Care 01 Condition: Good - Referral to Home Health Primary Care Physician: Walt Doshi MD - Patient Summary/Data Consults: Consultations 03/30/20 15:18 PT Evaluation and Treatment [CONS] Routine - Patient Instructions Diet: Usual Diet as Tolerated Activity: As Tolerated Showering/Bathing: May Shower Notify Provider of: Fever, Increased Pain, Swelling and Redness, Drainage, Nausea and/or Vomiting - Discharge Plan Home Medications: Home Meds allopurinoL [Allopurinol] 300 mg PO DAILY 11/11/14 [History] Folic Acid 1 mg PO DAILY 03/27/20 [History] Furosemide 40 mg PO DAILY 03/27/20 [History] Insulin Degludec [Tresiba] 52 unit SQ QPM 03/27/20 [History] Metoprolol Tartrate [Lopressor] 25 mg PO BID 03/27/20 [History] Olmesartan [Benicar] 40 mg PO DAILY 03/27/20 [History] Sodium Bicarbonate 325 mg PO BID 03/27/20 [History] hydroCHLOROthiazide [Hydrochlorothiazide] 25 mg PO DAILY 03/27/20 [History] Patient Handouts: Shingles, [id number] Referrals: Walt Doshi MD [Primary Care Provider] - 04/14/20 9:00 am - Patient Data Vitals - Most Recent: Last Vital Signs Temp 36.2 C 04/02/20 08:00 Pulse 84 04/02/20 08:02 Resp 19 04/02/20 08:00 BP 150/75 H 04/02/20 08:02 Pulse Ox 98 04/02/20 08:00 Weight - Most Recent: 114.124 kg I&O - Last 24 hours: Intake & Output 04/01/20 04/02/20 04/02/20 22:59 06:59 14:59 Intake Total 1780 1020 Output Total 1200 1400 Balance 580 -380 Lab Results - Last 24 hrs: Laboratory Results - last 24 hr 04/01/20 04/01/20 04/02/20 Range/Units 12:09 17:02 01:52 WBC (4.0-11.0) K/uL RBC (4.30-5.90) M/uL Hgb (12.0-16.0) g/dL Hct (36.0-46.0) % MCV (80.0-98.0) fL MCH (27.0-32.0) pg MCHC (31.0-37.0) g/dL RDW Std Deviation (28.0-62.0) fl RDW Coeff of Linette (11.0-15.0) % Plt Count (150-400) K/uL MPV (7.40-12.00) fL Neut % (Auto) (48.0-80.0) % Lymph % (Auto) (16.0-40.0) % [place] % (Auto) (0.0-15.0) % Eos % (Auto) (0.0-7.0) % Baso % (Auto) (0.0-1.5) % Neut # (Auto) (1.4-5.7) K/uL Lymph # (Auto) (0.6-2.4) K/uL [place] # (Auto) (0.0-0.8) K/uL Eos # (Auto) (0.0-0.7) K/uL Baso # (Auto) (0.0-0.1) K/uL Nucleated RBC % /100WBC Nucleated RBCs # K/uL Sodium (136-145) mmol/L Potassium (3.5-5.1) mmol/L Chloride (98-107) mmol/L Carbon Dioxide (21.0-32.0) mmol/L BUN (7.0-18.0) mg/dL Creatinine (0.6-1.0) mg/dL Est Cr Clr Drug Dosing mL/min Estimated GFR (MDRD) ml/min Glucose (74-106) mg/dL POC Glucose 162 H 174 H (60-110) mg/dL Calcium (8.5-10.1) mg/dL Creatine Kinase (26-308) U/L Vancomycin Trough 5.7 (5.0-10.0) ug/mL 04/02/20 04/02/20 04/02/20 Range/Units 05:42 09:00 09:00 WBC 8.29 (4.0-11.0) K/uL RBC 3.42 L (4.30-5.90) M/uL Hgb 10.1 L (12.0-16.0) g/dL Hct 32.7 L (36.0-46.0) % MCV 95.6 (80.0-98.0) fL MCH 29.5 (27.0-32.0) pg MCHC 30.9 L (31.0-37.0) g/dL RDW Std Deviation 55.7 (28.0-62.0) fl RDW Coeff of Linette 16 H (11.0-15.0) % Plt Count 205 (150-400) K/uL MPV 10.90 (7.40-12.00) fL Neut % (Auto) 64.6 (48.0-80.0) % Lymph % (Auto) 19.7 (16.0-40.0) % [place] % (Auto) 8.2 (0.0-15.0) % Eos % (Auto) 7.0 (0.0-7.0) % Baso % (Auto) 0.5 (0.0-1.5) % Neut # (Auto) 5.4 (1.4-5.7) K/uL Lymph # (Auto) 1.6 (0.6-2.4) K/uL [place] # (Auto) 0.7 (0.0-0.8) K/uL Eos # (Auto) 0.6 (0.0-0.7) K/uL Baso # (Auto) 0.0 (0.0-0.1) K/uL Nucleated RBC % 0.0 /100WBC Nucleated RBCs # 0 K/uL Sodium 138 (136-145) mmol/L Potassium 4.8 (3.5-5.1) mmol/L Chloride 105 (98-107) mmol/L Carbon Dioxide 22.8 (21.0-32.0) mmol/L BUN 27 H (7.0-18.0) mg/dL Creatinine 1.5 H (0.6-1.0) mg/dL Est Cr Clr Drug Dosing 24.08 mL/min Estimated GFR (MDRD) 33.8 ml/min Glucose 184 H (74-106) mg/dL POC Glucose 162 H (60-110) mg/dL Calcium 8.8 (8.5-10.1) mg/dL Creatine Kinase 2916 H (26-308) U/L Vancomycin Trough (5.0-10.0) ug/mL ASTRID Results - Last 24 hrs: Microbiology 03/30/20 22:00 Gram Stain - Final Cerebral Spinal Fluid CSF Culture - Final NO GROWTH AFTER 3 DAYS Med Orders - Current: Current Medications Hydrochlorothiazide (Hydrochlorothiazide) 25 mg PO DAILY [facility] Last Admin: 04/02/20 08:02 Dose: 25 mg Documented by: Sodium Chloride (Normal Saline) 1,000 mls @ 125 mls/hr IV ASDIRECTED [facility] Last Admin: 04/02/20 02:07 Dose: 125 mls/hr Documented by: Insulin Aspart (Novolog) 0 unit SUBCUT TIDAC [facility]; Protocol Last Admin: 04/02/20 07:14 Dose: 2 unit Documented by: Metoprolol Tartrate (Lopressor) 25 mg PO BID [facility] Last Admin: 04/02/20 08:02 Dose: 25 mg Documented by: Insulin Degludec [ (Tresiba] 52 Unit) 0 each SUBCUT QPM [facility] Last Admin: 04/01/20 19:48 Dose: Not Given Documented by: Discontinued Medications Atorvastatin Calcium (Lipitor) 40 mg PO BEDTIME [facility] Last Admin: 04/01/20 22:07 Dose: 40 mg Documented by: Acyclovir 1,150 mg/ Sodium (Chloride) 250 mls @ 250 mls/hr IV ONETIME ONE Stop: 03/30/20 15:44 Last Admin: 03/30/20 19:21 Dose: Not Given Documented by: Acyclovir 1,150 mg/ Sodium (Chloride) 273 mls @ 273 mls/hr IV Q24H [facility] Sodium Chloride (Normal Saline) 1,000 mls @ 999 mls/hr IV .Bolus ONE Stop: 03/30/20 15:59 Last Admin: 03/30/20 15:21 Dose: 999 mls/hr Documented by: Acyclovir 1,150 mg/ Sodium (Chloride) 250 mls @ 250 mls/hr IV ONETIME ONE Stop: 03/30/20 17:29 Last Admin: 03/30/20 17:05 Dose: 250 mls/hr Documented by: Ceftriaxone Sodium/Dextrose 2 (gm/ Premix) 50 mls @ 100 mls/hr IV Q24H [facility] Last Admin: 03/31/20 04:35 Dose: Not Given Documented by: Vancomycin HCl 1.75 gm/ Sodium (Chloride) 500 mls @ 250 mls/hr IV ONETIME ONE Stop: 03/31/20 02:59 Last Admin: 03/31/20 01:57 Dose: 250 mls/hr Documented by: Ceftriaxone Sodium/Dextrose 2 (gm/ Premix) 50 mls @ 100 mls/hr IV Q24H [facility] Last Admin: 04/01/20 03:24 Dose: 100 mls/hr Documented by: Vancomycin HCl 1.75 gm/ Sodium (Chloride) 500 mls @ 250 mls/hr IV Q24H [facility] Valacyclovir HCl (Valtrex) 1,000 mg PO ONETIME ONE Stop: 04/01/20 15:01 Last Admin: 04/01/20 14:55 Dose: 1,000 mg Documented by: Vancomycin HCl (Pharmacy To Dose - Vancomycin) 1 dose .XX ASDIRECTED [facility]
--- NOTE | 2020-04-02 11:54 | PCM.DCSUM1 ---
Discharge Summary - Discharge Data Discharge Date: 04/02/20 Discharge Disposition: Home, Self-Care 01 Condition: Good - Referral to Home Health Primary Care Physician: Walt Doshi MD - Patient Summary/Data Consults: Consultations 03/30/20 15:18 PT Evaluation and Treatment [CONS] Routine Hospital Course: 74 yo female with pmh of HTN, DM, CAD, s/p CABG 2017, and stage 4 CKD who was seen in the ED last week for herpes zoster infection of the left face. Patient was given acyclovir. She reported feeling week and feel down yesterday and had difficulty getting up. She stopped taking the acyclovir as she was concerned this was causing her generalized weakness. She was seen in by Dr. Henriquez clinic today who recommended admission due to her progressive weakness and zoster infection of the face. She was found to be have acute kidney injury with an increase in her creatinine to 2.9. MRI of brain and spine was unremarkable. Lumbar puncture had 250 WBC that were lymphocyte predominant was thought not to be significant. She was treated with IV acyclovir during her hospital stay. She did have improvement of the rash of her face. There was not felt to be ocular involvement. She did have improvement in her creatinine to 1.5. Her generalized weakness resolved. It was thought her weakness was likely due to acute renal failure from her acyclovir. She was noted to have elevated CPK levels on admission which could be attributed to her fall. Her Lipitor was discontinued. At discharge her antivirals were discontinued as the benefit from continuing likely does not outweigh the risk. She was discharge home to have follow up with Dr. Doshi. - Patient Instructions Diet: Usual Diet as Tolerated Activity: As Tolerated Showering/Bathing: May Shower Notify Provider of: Fever, Increased Pain, Swelling and Redness, Drainage, Nausea and/or Vomiting - Discharge Plan Home Medications: Home Meds allopurinoL [Allopurinol] 300 mg PO DAILY 11/11/14 [History] Folic Acid 1 mg PO DAILY 03/27/20 [History] Furosemide 40 mg PO DAILY 03/27/20 [History] Insulin Degludec [Tresiba] 52 unit SQ QPM 03/27/20 [History] Metoprolol Tartrate [Lopressor] 25 mg PO BID 03/27/20 [History] Olmesartan [Benicar] 40 mg PO DAILY 03/27/20 [History] Sodium Bicarbonate 325 mg PO BID 03/27/20 [History] hydroCHLOROthiazide [Hydrochlorothiazide] 25 mg PO DAILY 03/27/20 [History] Patient Handouts: Shingles, [id number] Referrals: Walt Dohsi MD [Primary Care Provider] - 04/14/20 9:00 am - Discharge Summary/Plan Comment DC Time >30 min.: No - Patient Data Vitals - Most Recent: Last Vital Signs Temp 36.2 C 04/02/20 08:00 Pulse 84 04/02/20 08:02 Resp 19 04/02/20 08:00 BP 150/75 H 04/02/20 08:02 Pulse Ox 98 04/02/20 08:00 Weight - Most Recent: 114.124 kg I&O - Last 24 hours: Intake & Output 04/01/20 04/02/20 04/02/20 22:59 06:59 14:59 Intake Total 1780 1020 Output Total 1200 1400 Balance 580 -380 Lab Results - Last 24 hrs: Laboratory Results - last 24 hr 04/01/20 04/01/20 04/02/20 Range/Units 12:09 17:02 01:52 WBC (4.0-11.0) K/uL RBC (4.30-5.90) M/uL Hgb (12.0-16.0) g/dL Hct (36.0-46.0) % MCV (80.0-98.0) fL MCH (27.0-32.0) pg MCHC (31.0-37.0) g/dL RDW Std Deviation (28.0-62.0) fl RDW Coeff of Linette (11.0-15.0) % Plt Count (150-400) K/uL MPV (7.40-12.00) fL Neut % (Auto) (48.0-80.0) % Lymph % (Auto) (16.0-40.0) % [place] % (Auto) (0.0-15.0) % Eos % (Auto) (0.0-7.0) % Baso % (Auto) (0.0-1.5) % Neut # (Auto) (1.4-5.7) K/uL Lymph # (Auto) (0.6-2.4) K/uL [place] # (Auto) (0.0-0.8) K/uL Eos # (Auto) (0.0-0.7) K/uL Baso # (Auto) (0.0-0.1) K/uL Nucleated RBC % /100WBC Nucleated RBCs # K/uL Sodium (136-145) mmol/L Potassium (3.5-5.1) mmol/L Chloride (98-107) mmol/L Carbon Dioxide (21.0-32.0) mmol/L BUN (7.0-18.0) mg/dL Creatinine (0.6-1.0) mg/dL Est Cr Clr Drug Dosing mL/min Estimated GFR (MDRD) ml/min Glucose (74-106) mg/dL POC Glucose 162 H 174 H (60-110) mg/dL Calcium (8.5-10.1) mg/dL Creatine Kinase (26-308) U/L Vancomycin Trough 5.7 (5.0-10.0) ug/mL 04/02/20 04/02/20 04/02/20 Range/Units 05:42 09:00 09:00 WBC 8.29 (4.0-11.0) K/uL RBC 3.42 L (4.30-5.90) M/uL Hgb 10.1 L (12.0-16.0) g/dL Hct 32.7 L (36.0-46.0) % MCV 95.6 (80.0-98.0) fL MCH 29.5 (27.0-32.0) pg MCHC 30.9 L (31.0-37.0) g/dL RDW Std Deviation 55.7 (28.0-62.0) fl RDW Coeff of Linette 16 H (11.0-15.0) % Plt Count 205 (150-400) K/uL MPV 10.90 (7.40-12.00) fL Neut % (Auto) 64.6 (48.0-80.0) % Lymph % (Auto) 19.7 (16.0-40.0) % [place] % (Auto) 8.2 (0.0-15.0) % Eos % (Auto) 7.0 (0.0-7.0) % Baso % (Auto) 0.5 (0.0-1.5) % Neut # (Auto) 5.4 (1.4-5.7) K/uL Lymph # (Auto) 1.6 (0.6-2.4) K/uL [place] # (Auto) 0.7 (0.0-0.8) K/uL Eos # (Auto) 0.6 (0.0-0.7) K/uL Baso # (Auto) 0.0 (0.0-0.1) K/uL Nucleated RBC % 0.0 /100WBC Nucleated RBCs # 0 K/uL Sodium 138 (136-145) mmol/L Potassium 4.8 (3.5-5.1) mmol/L Chloride 105 (98-107) mmol/L Carbon Dioxide 22.8 (21.0-32.0) mmol/L BUN 27 H (7.0-18.0) mg/dL Creatinine 1.5 H (0.6-1.0) mg/dL Est Cr Clr Drug Dosing 24.08 mL/min Estimated GFR (MDRD) 33.8 ml/min Glucose 184 H (74-106) mg/dL POC Glucose 162 H (60-110) mg/dL Calcium 8.8 (8.5-10.1) mg/dL Creatine Kinase 2916 H (26-308) U/L Vancomycin Trough (5.0-10.0) ug/mL ASTRID Results - Last 24 hrs: Microbiology 03/30/20 22:00 Gram Stain - Final Cerebral Spinal Fluid CSF Culture - Final NO GROWTH AFTER 3 DAYS Med Orders - Current: Current Medications Hydrochlorothiazide (Hydrochlorothiazide) [address] [facility] Last Admin: 04/02/20 08:02 Dose: 25 mg Documented by: Sodium Chloride (Normal Saline) 1,000 mls @ 125 mls/hr IV ASDIRECTED [facility] Last Admin: 04/02/20 02:07 Dose: 125 mls/hr Documented by: Insulin Aspart (Novolog) [address] [facility]; Protocol Last Admin: 04/02/20 07:14 Dose: 2 unit Documented by: Metoprolol Tartrate (Lopressor) [address] [facility] Last Admin: 04/02/20 08:02 Dose: 25 mg Documented by: Insulin Degludec [ (Tresiba] 52 Unit) [address] [facility] Last Admin: 04/01/20 19:48 Dose: Not Given Documented by: Discontinued Medications Atorvastatin Calcium (Lipitor) [address] [facility] Last Admin: 04/01/20 22:07 Dose: 40 mg Documented by: Acyclovir 1,150 mg/ Sodium (Chloride) 250 mls @ 250 mls/hr IV ONETIME ONE Stop: 03/30/20 15:44 Last Admin: 03/30/20 19:21 Dose: Not Given Documented by: Acyclovir 1,150 mg/ Sodium (Chloride) 273 mls @ 273 mls/hr IV Q24H [facility] Sodium Chloride (Normal Saline) 1,000 mls @ 999 mls/hr IV .Bolus ONE Stop: 03/30/20 15:59 Last Admin: 03/30/20 15:21 Dose: 999 mls/hr Documented by: Acyclovir 1,150 mg/ Sodium (Chloride) 250 mls @ 250 mls/hr IV ONETIME ONE Stop: 03/30/20 17:29 Last Admin: 03/30/20 17:05 Dose: 250 mls/hr Documented by: Ceftriaxone Sodium/Dextrose 2 (gm/ Premix) 50 mls @ 100 mls/hr IV Q24H [facility] Last Admin: 03/31/20 04:35 Dose: Not Given Documented by: Vancomycin HCl 1.75 gm/ Sodium (Chloride) 500 mls @ 250 mls/hr IV ONETIME ONE Stop: 03/31/20 02:59 Last Admin: 03/31/20 01:57 Dose: 250 mls/hr Documented by: Ceftriaxone Sodium/Dextrose 2 (gm/ Premix) 50 mls @ 100 mls/hr IV Q24H [facility] Last Admin: 04/01/20 03:24 Dose: 100 mls/hr Documented by: Vancomycin HCl 1.75 gm/ Sodium (Chloride) 500 mls @ 250 mls/hr IV Q24H [facility] Valacyclovir HCl (Valtrex) 1,000 mg PO ONETIME ONE Stop: 04/01/20 15:01 Last Admin: 04/01/20 14:55 Dose: 1,000 mg Documented by: Vancomycin HCl (Pharmacy To Dose - Vancomycin) [address] [facility]
== END 2020-04-02 12:15 | disposition home health service (06) | DRG 683 ==
LOC: MW.MS 12:03
PROVIDERS: ADMIT Internal Medicine; ATTEND Internal Medicine
PROC: 009U3ZX Drainage of Spinal Canal, Percutaneous Approach, Diagnostic (ICD-10-PCS; principal; 2020-03-30)
DX: N17.9 Acute kidney failure, unspecified (principal); M62.82 Rhabdomyolysis; T37.5X5A Adverse effect of antiviral drugs, initial encounter; N18.4 Chronic kidney disease, stage 4 (severe); I25.10 Atherosclerotic heart disease of native coronary artery without angina pectoris; I12.9 Hypertensive chronic kidney disease with stage 1 through stage 4 chronic kidney disease, or unspecified chronic kidney disease; E78.00 Pure hypercholesterolemia, unspecified; E11.22 Type 2 diabetes mellitus with diabetic chronic kidney disease; B02.9 Zoster without complications; Z20.828 Contact with and (suspected) exposure to other viral communicable diseases; Z79.4 Long term (current) use of insulin; Z79.899 Other long term (current) drug therapy; Z91.040 Latex allergy status; Z90.89 Acquired absence of other organs; Z95.1 Presence of aortocoronary bypass graft; Z98.84 Bariatric surgery status; Z98.890 Other specified postprocedural states
CPT/HCPCS: 36415; 62270; 70450; 70450-26; 70551; 70551-26; 72141; 72141-26; 72146; 72146-26; 72148; 72148-26; 80048; 80053; 80202; 82550; 82945; 82962; 83605; 84157; 85025; 86592; 87070; 87205; 87529; 89050; 97162-GP; 97530-GP; A9270-GY; J0133; J0696; J1815-GY; J3370; J7030; J7040; J7050; U0002

== ENCOUNTER 2022-04-16 11:27 | Emergency (ER) | payer MEDICARE, BC ==
[2022-04-16] MEDS ORDERED: Diphtheria,Pertussis(Acell),Tetanus Vaccine 0.5 ML Syringe IM ONE (11:36)
[2022-04-16] MEDS ORDERED: Amoxicillin/Clavulanate K 875-125 MG Tab PO ONE (11:36)
[2022-04-16] MEDS ORDERED: Bacitracin Oint 1 GM U/D Packet TOP ONE (11:36)
[2022-04-16 11:55] VITALS: BP 84/44; PULSE 60
== END 2022-04-16 12:30 | disposition home or self-care (01) ==
LOC: MW.ED 11:27
DX: S91.051A Open bite, right ankle, initial encounter (principal); E78.00 Pure hypercholesterolemia, unspecified; I10 Essential (primary) hypertension; E11.9 Type 2 diabetes mellitus without complications; Z95.1 Presence of aortocoronary bypass graft; Z23 Encounter for immunization; W55.01XA Bitten by cat, initial encounter
CPT/HCPCS: 90471; 90715; 99283; A9270

== ENCOUNTER 2022-11-25 08:14 | Day surgery (SDC) | payer MEDICARE, BC ==
[~2022-11-25 08:14] MED LIST: Lactated Ringers 1,000 ML IV SCH
[2022-11-25] MEDS ORDERED: fentaNYL 100 MCG/2 ML SDV ONE (08:42)
[2022-11-25] MEDS ORDERED: Propofol 200 MG/20 ML SDV ONE (08:42)
[2022-11-25] MEDS ORDERED: Water For Injection, Sterile 20 ML ONE (08:43)
[2022-11-25] MEDS ORDERED: Dexmedetomidine 200 MCG/2 ML SDV ONE (08:43)
[2022-11-25] MEDS ORDERED: Lidocaine 1% 20 ML MDV ONE (09:22)
[2022-11-25] MEDS ORDERED: Bupivacaine 0.5% 30 ML SDV ONE (09:22)
[2022-11-25] MEDS ORDERED: Ropivacaine 0.5% 5 MG/ML 30 ML SDV ONE (09:32)
[2022-11-25] MEDS ORDERED: Lidocaine 2% 5 ML SDV ONE (09:32)
[2022-11-25] MEDS ORDERED: Albuterol 0.083% 2.5 MG/3 ML Neb Soln NEB PRN (09:47)
[2022-11-25] MEDS ORDERED: Naloxone 0.4 MG/ML SDV IVPUSH PRN (09:47)
[2022-11-25] MEDS ORDERED: fentaNYL 50 MCG/ML SDV IVPUSH PRN (09:47)
[2022-11-25] MEDS ORDERED: Ondansetron 4 MG/2 ML SDV IVPUSH PRN (09:47)
[2022-11-25] MEDS ORDERED: Morphine 2 MG/ML SYRINGE IVPUSH PRN (09:47)
[2022-11-25] MEDS ORDERED: Metoclopramide 10 MG/2 ML SDV IVPUSH PRN (09:47)
[2022-11-25] MEDS ORDERED: HYDROmorphone 1 MG/ML Syringe IVPUSH PRN (09:47)
[2022-11-25] MEDS ORDERED: ceFAZolin 2 GM in Premix Bag 1 BAG IV ONE (10:00)
[2022-11-25] MEDS ORDERED: ceFAZolin 2 GM Vial ONE (10:29)
[2022-11-25] MEDS ORDERED: ePHEDrine 50 MG/ML SDV ONE (10:49)
[2022-11-25 13:01] VITALS: BP 129/57; PULSE 75
== END 2022-11-25 12:45 | disposition home or self-care (01) ==
LOC: MW.SDS 08:14
PROVIDERS: ATTEND Podiatrist Foot & Ankle Surgery
DX: E11.69 Type 2 diabetes mellitus with other specified complication (principal); M86.172 Other acute osteomyelitis, left ankle and foot; L03.032 Cellulitis of left toe; E03.9 Hypothyroidism, unspecified; I25.10 Atherosclerotic heart disease of native coronary artery without angina pectoris; E11.621 Type 2 diabetes mellitus with foot ulcer; L97.529 Non-pressure chronic ulcer of other part of left foot with unspecified severity; I48.91 Unspecified atrial fibrillation; E11.22 Type 2 diabetes mellitus with diabetic chronic kidney disease; I13.0 Hypertensive heart and chronic kidney disease with heart failure and stage 1 through stage 4 chronic kidney disease, or unspecified chronic kidney disease; N18.4 Chronic kidney disease, stage 4 (severe); I50.30 Unspecified diastolic (congestive) heart failure; E11.21 Type 2 diabetes mellitus with diabetic nephropathy; E78.5 Hyperlipidemia, unspecified; Z95.1 Presence of aortocoronary bypass graft; M10.9 Gout, unspecified; Z88.0 Allergy status to penicillin; Z88.8 Allergy status to other drugs, medicaments and biological substances; Z91.040 Latex allergy status; Z79.4 Long term (current) use of insulin; Z79.899 Other long term (current) drug therapy; E66.9 Obesity, unspecified; Z68.42 Body mass index [BMI] 45.0-49.9, adult; Z79.82 Long term (current) use of aspirin
CPT/HCPCS: 28825; 76000; J0690; J2704; J2795; J3010; J7120; 01480; 99100; J3490

== ENCOUNTER 2023-10-29 16:29 | Emergency (ER) | payer MEDICARE, BC ==
[2023-10-29] MEDS: Lidocaine 1% 5 ML VIAL INJECT ONE (19:00)
[2023-10-29 23:21] VITALS: BP 154/93; PULSE 78
== END 2023-10-29 19:17 | disposition home or self-care (01) ==
LOC: MW.ED 16:29
DX: S61.217A Laceration without foreign body of left little finger without damage to nail, initial encounter (principal); I10 Essential (primary) hypertension; E78.00 Pure hypercholesterolemia, unspecified; I25.810 Atherosclerosis of coronary artery bypass graft(s) without angina pectoris; E11.40 Type 2 diabetes mellitus with diabetic neuropathy, unspecified; E66.9 Obesity, unspecified; Z68.42 Body mass index [BMI] 45.0-49.9, adult; Z79.82 Long term (current) use of aspirin; Z79.899 Other long term (current) drug therapy; Z91.040 Latex allergy status
CPT/HCPCS: 12001; 99282; 99283; J3490

== ENCOUNTER 2025-01-02 14:48 | Emergency (ER) | payer MEDICARE, BC ==
[2025-01-02] MEDS ORDERED: Sodium Chloride 0.9% 10 ML Syringe FLUSH PRN (15:26)
[2025-01-02] MEDS ORDERED: Sodium Chloride 0.9% 2.5 ML Syringe FLUSH PRN (15:26)
[2025-01-02 16:43] LABS: BASOPHILS ABSOLUTE AUTO 0.03 K/uL (0.00-0.20); BASOPHILS PERCENT AUTO 0.5 % (0.0-1.0); EOSINOPHILS ABSOLUTE AUTO 0.11 K/uL (0.00-0.45); EOSINOPHILS PERCENT AUTO 1.7 % (0.0-6.0); HEMATOCRIT 38.4 % (37.0-47.0); HEMOGLOBIN 12.2 g/dL (12.0-16.0); IMMATURE GRAN ABSOLUTE AUTO 0.06 K/uL (0.00-0.05); IMMATURE GRAN PERCENT AUTO 0.9 % (0.0-0.4); LYMPHOCYTES ABSOLUTE AUTO 0.58 K/uL (1.00-4.80); LYMPHOCYTES PERCENT AUTO 8.9 % (24.0-44.0); MEAN CORPUSCULAR HEMOGLOBIN 29.5 pg (28.0-32.0); MEAN CORPUSCULAR HGB CONC 31.8 g/dL (32.0-36.0); MEAN PLATELET VOLUME 10.5 fL (9.4-12.3); MONOCYTES ABSOLUTE AUTO 0.71 K/uL (0.00-0.80); MONOCYTES PERCENT AUTO 10.9 % (0.0-8.0); NEUTROPHILS PERCENT AUTO 77.1 % (41.0-71.0); PLATELET COUNT,PLT 244 K/uL (150-400); RED BLOOD CELL COUNT 4.13 M/uL (4.10-5.30); WHITE BLOOD CELL COUNT,WBC 6.49 K/uL (3.9-11.3)
[2025-01-02 17:25] LABS: A/G RATIO 0.8 (0.9-1.6); ALANINE AMINOTRANSFERASE,ALT 37 IU/L (14-63); ALKALINE PHOSPHATASE 111 U/L (46-116); ASPARTATE AMNIOTRANSFERASE,AST 23 IU/L (15-37); BILIRUBIN TOTAL 0.2 mg/dL (0.2-1.0); BLOOD UREA NITROGEN,BUN 46 mg/dL (7.0-18.0); CALCIUM 9.1 mg/dL (8.5-10.1); CARBON DIOXIDE,CO2 29.7 mmol/L (21.0-32.0); CHLORIDE,CL 100 mmol/L (98-107); CREATININE 2.2 mg/dL (0.6-1.0); GLUCOSE RANDOM 258 mg/dL (74-106); MAGNESIUM 1.8 mg/dL (1.8-2.4); POTASSIUM,K 4.4 mmol/L (3.5-5.1); PRO B-TYPE NATRIUR PEPT,BNPPRO 250 pg/mL (0-450); SODIUM,NA 139 mmol/L (136-145)
[2025-01-02 17:31] LABS: ESTIMATED GFR 22 mL/min (>60)
[2025-01-02 18:10] VITALS: BP 148/89; PULSE 75
== END 2025-01-02 18:18 | disposition home or self-care (01) ==
LOC: MW.ED 14:48
DX: I87.2 Venous insufficiency (chronic) (peripheral) (principal); L03.115 Cellulitis of right lower limb; L03.116 Cellulitis of left lower limb; I12.9 Hypertensive chronic kidney disease with stage 1 through stage 4 chronic kidney disease, or unspecified chronic kidney disease; N18.4 Chronic kidney disease, stage 4 (severe); E11.22 Type 2 diabetes mellitus with diabetic chronic kidney disease; E78.00 Pure hypercholesterolemia, unspecified; Z75.8 Other problems related to medical facilities and other health care; Z91.040 Latex allergy status; Z79.4 Long term (current) use of insulin; Z79.899 Other long term (current) drug therapy; Z79.82 Long term (current) use of aspirin; Z95.5 Presence of coronary angioplasty implant and graft
CPT/HCPCS: 36415; 71045; 71045-26; 80053; 83735; 83880; 85025; 93005; 93010; 93970; 93970-26; 99284